=== PATIENT | female | born 1970 | race Caucasian/White ===

== ENCOUNTER 2017-09-03 17:18 | Emergency (ER) | payer OTHER ==
[~2017-09-03] VITALS: Ht 160 cm; Wt 52.2 kg
[2017-09-03] MEDS ORDERED: MEDROLPACK PO (20:27)
[2017-09-03] MEDS ORDERED: ZITHROMAX TRI-500 MG PO (20:27)
[2017-09-03] MEDS ORDERED: MUCINEX DM ER1 EAC1 PO (20:27)
[2017-09-03] MEDS ORDERED: FLONASE ALLERG9.9 ML NASAL (20:27)
[2017-09-03] MEDS ORDERED: NEBUSAL4 M1 IH (20:31)
== END 2017-09-03 20:33 | disposition home or self-care (01) ==
LOC: ER 17:18
DX: J32.8 Other chronic sinusitis (principal)

== ENCOUNTER 2018-09-12 09:21 | Emergency (ER) | payer OTHER ==
[~2018-09-12] VITALS: Ht 160 cm; Wt 52.6 kg
[~2018-09-12 09:21] MED LIST: FLONASE ALLERG9.9 ML NASAL; MEDROLPACK PO; MUCINEX DM ER1 EAC1 PO; NEBUSAL4 M1 IH; ZITHROMAX TRI-500 MG PO
== END 2018-09-12 12:11 | disposition home or self-care (01) ==
LOC: ER 09:21
DX: J09.X2 Influenza due to identified novel influenza A virus with other respiratory manifestations (principal)

== ENCOUNTER 2018-11-15 13:51 | Emergency (ER) | payer OTHER ==
[~2018-11-15] VITALS: Ht 160 cm; Wt 53.1 kg
== END 2018-11-15 16:26 | disposition home or self-care (01) ==
LOC: ER 13:51
DX: J31.2 Chronic pharyngitis (principal)